=== PATIENT | male | born 1970 | race Caucasian/White ===

== ENCOUNTER 2023-10-23 19:44 | Emergency (ER) | payer BC | END 2023-10-23 21:25 | disposition left against medical advice (07) | LOC: MADERS 19:44 | DX: Z53.21 Procedure and treatment not carried out due to patient leaving prior to being seen by health care provider (principal) ==

== ENCOUNTER 2025-03-23 15:33 | Outpatient (CLI) | payer BC | END 2025-03-23 15:34 | disposition home or self-care (01) | LOC: MADRAD 15:33 | PROVIDERS: ATTEND Orthopaedic Surgery | DX: T84.020A Dislocation of internal right hip prosthesis, initial encounter (principal); Z96.642 Presence of left artificial hip joint ==